=== PATIENT | male | born 1965 | race Caucasian/White ===

== ENCOUNTER 2018-02-16 13:21 | Observation (INO) ==
[2018-02-16 14:25] LABS: Basophils % 0.4 %; Eosinophils # 0.2 K/mcL (0.0-0.6); Hematocrit 36.1 % (37.5-50.1); Hemoglobin 13.3 g/dL (12.9-16.9); Immature Granulocytes % 1.9 % (0-4); Lymphocytes # 0.8 K/mcL (0.6-4.6); Lymphocytes % 15.5 %; Mean Corpuscular HGB Conc 36.8 g/dL (31.6-35.5); Mean Corpuscular Hemoglobin 34.3 pg (28.0-33.3); Monocytes # 0.6 K/mcL (0.0-1.3); Neutrophils # 3.6 K/mcL (1.6-8.9); Platelet Count 208 K/mcL (140-400); Red Blood Count 3.88 M/mcL (4.19-5.50); Red Cell Distribution Width 11.9 % (11.5-14.5); Segmented Neutrophils % 68.2 %
[2018-02-16 14:30] LABS: BUN/Creatinine Ratio 14 (6-26); Blood Urea Nitrogen 7 mg/dL (6-20); Calcium 8.5 mg/dL (8.6-10.3); Carbon Dioxide 28 mEq/L (23-29); Chloride 80 mEq/L (98-107); Glucose 198 mg/dL (70-105); Osmolality,Calculated 244 (280-300); Sodium 115 mEq/L (136-145); eGFR For Non-African Americans > 60 (> 60)
[2018-02-16] MEDS ORDERED: 0.9 % Sodium Chloride 1,000 ML IVC ONE (14:44)
--- NOTE | 2018-02-16 14:50 | Emergency Department Note ---
Disposition Clinical Impression: Hyponatremia Disposition: Admitted As Inpatient Condition: Fair Referrals: Alize Woo MD [Primary Care Provider] - Time of Disposition: 15:05 Recheck wound or abnormal lab - General Chief Complaint: ED Recheck/Abnormal Lab/Rx Stated Complaint: low sodium abnormal labs Time Seen by Provider: 02/16/18 13:42 Source: EMS Mode of arrival: EMS Limitations: no limitations Nursing Notes Reviewed: Yes Vital Signs Reviewed: Yes - History of Present Illness Pt Subjective Complaint: abnormal lab(s) Symptoms Since Prior Visit: no new symptoms Context: planned re-check, called for abnormal lab result, other (Patient has had 2 hospitalizations in the past couple months for hyponatremia. [place] week he [place] [facility] Today he went to physician office for follow-up and had recheck laboratory studies performed. He was then called because the sodium was low and he was told he needed to go to the emergency department. He denies any symptoms. He he says last time he felt weird but this time he feels his normal self and has been maintaining his normal activity level at home over the past few days.) Associated symptoms: none - Related Data Home Medications Medication Instructions Recorded Confirmed Albuterol Neb [Proventil Neb] 1 aerosol IH Q4H PRN 01/23/18 02/16/18 Albuterol Sulfate [Ventolin Hfa] 2 puff IH BID 01/23/18 02/16/18 Atorvastatin Calcium [Lipitor] 20 mg PO DAILY 01/23/18 02/16/18 Cholecalciferol (Vitamin D3) 2 cap PO DAILY 01/23/18 02/16/18 [Vitamin D3] Docusate Sodium [Move It Along] 100 mg PO BID PRN 01/23/18 02/16/18 Dutasteride [Avodart] 0.5 mg PO DAILY 01/23/18 02/16/18 Fluticasone Propionate Nasal 2 inh IN DAILY 01/23/18 02/16/18 [Flonase] Haloperidol 10 mg PO BID 01/23/18 02/16/18 Lisinopril [Zestril] 20 mg PO DAILY 01/23/18 02/16/18 Loratadine [Allergy Relief] 10 mg PO DAILY 01/23/18 02/16/18 Melatonin [Melatin] 3 mg PO HS PRN 01/23/18 02/16/18 Metoprolol Tartrate [Lopressor] 50 mg PO BID 01/23/18 02/16/18 Multivits,Ca,Min/Iron/FA/Lycop 1 tab PO DAILY 01/23/18 02/16/18 [Centrum Men's Tablet] OXcarbazepine [Oxcarbazepine] 300 mg PO TID 01/23/18 02/16/18 OXcarbazepine [Oxcarbazepine] 600 mg PO TID 01/23/18 02/16/18 Omeprazole [PriLOSEC] 20 mg PO DAILY 01/23/18 02/16/18 Promethazine [Phenergan] 25 mg PO Q6HR PRN 01/23/18 02/16/18 Sodium Chloride/Sodium Bicarb 1 spray IN BID 01/23/18 02/16/18 [Nasa Mist Saline [place]] Tamsulosin HCl [Flomax] 0.4 mg PO DAILY 01/23/18 02/16/18 Tramadol HCl [Ultram] 100 mg PO TID 01/23/18 02/16/18 Valacyclovir HCl [Valtrex] 1,000 mg PO Q12H PRN 01/23/18 02/16/18 amLODIPine [Norvasc] 10 mg PO DAILY 01/23/18 02/16/18 Haloperidol [Haldol] 5 mg PO BID 01/24/18 02/16/18 Montelukast [Singulair] 10 mg PO DAILY 01/24/18 02/16/18 Trihexyphenidyl [Artane] 1 mg PO BID 01/24/18 02/16/18 Previous Rx's Medication Instructions Recorded Sodium Chloride [Sodium Chloride 1 gm PO BID #60 tablet 01/26/18 Tab] Allergies Allergy/AdvReac Type Severity Reaction Status Date / Time No Known Allergies Allergy Verified 02/09/17 16:36 All systems ED: reviewed and negative except as stated. Constitutional: Denies: fever, chills Eyes: Denies: vision change ENT ED: Denies: ear pain, throat pain, congestion Cardiovascular: Denies: chest pain, palpitations Respiratory: Denies: cough, dyspnea Gastrointestinal: Denies: abdominal pain, nausea, vomiting, diarrhea Genitourinary: Denies: urgency, frequency Musculoskeletal: Denies: myalgia Integumentary: Denies: rash Neurological: Denies: headache, weakness, numbness, paresthesias, confusion, vertigo Past Medical History - Past Medical History Attestation: Yes The following information was validated with the patient. Source: patient, old records reviewed, obtained from family, nursing notes reviewed Medical history: Reports: hypertension, other Surgical history: Reports: orthopedic, other (spine surgery) Psychiatric history: Reports: anxiety, bipolar, schizophrenia - Social History Smoking Status: Current every day smoker Smokeless Tobacco Status: No Alcohol use: Reports: none Drug use: Reports: none Physical Exam - General Limitations: no limitations General appearance: alert, in no apparent distress - Head Head exam: atraumatic, normocephalic, normal inspection - Eye Eye exam: Present: normal appearance, PERRL, EOMI. Absent: scleral icterus, conjunctival injection, periorbital swelling - ENT ENT exam: normal exam, normal oropharynx, mucous membranes moist, normal external ear exam - Neck Neck exam: Present: normal inspection, full ROM. Absent: meningismus, lymphadenopathy - Chest Chest inspection: Present: normal inspection, symmetric chest wall rise. Absent : tenderness - Respiratory Respiratory exam: Present: normal lung sounds bilaterally. Absent: respiratory distress, wheezes - Cardiovascular Cardiovascular exam: Present: regular rate, normal rhythm, normal heart sounds - Abdominal Exam Abdominal exam: Present: soft, Non-Tender, normal bowel sounds - Extremities Exam Extremities exam: Present: normal inspection. Absent: pedal edema - Neurological Exam Neurological exam: Present: alert, oriented X3. Absent: motor sensory deficit - Psychiatric Psychiatric exam: Present: normal affect, normal mood - Skin Skin exam: Present: warm, dry. Absent: rash Course Course Narrative: Patient presents with low sodium by outpatient lab. He has chronic hyponatremia usually in the 125-129 range. Recently he has had a couple of hospitalizations for sodium was down around 115. Patient is not able to explain what the etiology is. He was admitted to [facility] at the end of January. 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 He was started on salt tablets and his numbers improved and was discharged. Since that discharge he was seen at [facility]. The patient does not describe any symptoms to indicate hyponatremia. Physical examination is unremarkable. Neurologic examination is unremarkable. Clinically he looks euvolemic. First in order to do is repeat the lab to determine if it is accurate, especially in the context of no symptoms. - Reevaluation(s) Reevaluation #1: Sodium level was definitely low. Repeat was 115. He is asymptomatic and this is been an ongoing issue for several weeks so I do not think there is a rushed to correct that sodium. I will start him on normal saline. I have already spoken with the hospitalist. The patient has been accepted for admission. Time: 15:03 - Consultations Consultation #1: Dr. Gage, hospitalist - we have discussed the patient's presentation and labs as well as ER course and treatment. Patient has been accepted for admission. Time: 14:45 Vital Signs Temperature 98.0 F 02/16/18 13:26 Pulse Rate 55 02/16/18 13:26 Respiratory Rate 18 02/16/18 13:26 Blood Pressure 136/75 02/16/18 13:26 O2 Sat by Pulse Oximetry 98 02/16/18 13:26 Temperature 98.0 F 02/16/18 13:26 Pulse Rate 55 02/16/18 13:26 Respiratory Rate 18 02/16/18 13:26 Blood Pressure 136/75 02/16/18 13:26 O2 Sat by Pulse Oximetry 98 02/16/18 13:26 Oxygen Delivery Oxygen Delivery Room Air Recheck wound or abnormal lab - Medical Records Medical records reviewed: Yes I reviewed the patient's medical records. - Lab Data Lab results reviewed: Yes I reviewed the patient's lab results. Result diagrams: 02/16/18 14:00 02/16/18 14:00 Lab Results 02/16/18 02/16/18 Range/Units 14:00 14:00 WBC 5.3 (4.3-11.1) K/mcL RBC 3.88 L (4.19-5.50) M/mcL Hgb 13.3 (12.9-16.9) g/dL Hct 36.1 L (37.5-50.1) % MCV 93.0 (83.0-100.0) fL MCH 34.3 H (28.0-33.3) pg MCHC 36.8 H (31.6-35.5) g/dL RDW 11.9 (11.5-14.5) % Plt Count 208 (140-400) K/mcL MPV 9.0 L (9.4-12.4) fL Immature Gran % 1.9 (0-4) % Seg Neutrophils % 68.2 % Lymphocytes % 15.5 % Monocytes % 11.0 % Eosinophils % 3.0 % Basophils % 0.4 % Neutrophils # 3.6 (1.6-8.9) K/mcL Lymphocytes # 0.8 (0.6-4.6) K/mcL Monocytes # 0.6 (0.0-1.3) K/mcL Eosinophils # 0.2 (0.0-0.6) K/mcL Basophils # 0.0 (0.0-0.2) K/mcL Sodium 115 L* (136-145) mEq/L Potassium 3.0 L D (3.5-5.1) mEq/L Chloride 80 L (98-107) mEq/L Carbon Dioxide 28 (23-29) mEq/L BUN 7 (6-20) mg/dL Creatinine 0.49 L (0.70-1.30) mg/dL Est GFR ( Amer) > 60 (> 60) Est GFR (Non-Af Amer) > 60 (> 60) BUN/Creatinine Ratio 14 (6-26) Glucose 198 H (70-105) mg/dL Calculated Osmolality 244 L (280-300) Calcium 8.5 L (8.6-10.3) mg/dL
[2018-02-16] MEDS ORDERED: 0.9 % Sodium Chloride 1,000 ML IVC SCH (15:50)
[2018-02-16] MEDS ORDERED: Naloxone 0.4 MG/ML INJ IVP PRN (15:50)
[2018-02-16] MEDS ORDERED: Albuterol 2.5 MG/3 ML NEBULIZER IH PRN (16:00)
--- NOTE | 2018-02-16 18:57 | Internal Med History&Physical ---
Date of Encounter: 02/16/18 Time of Encounter: 18:15 Assessment and Plan (1) Hyponatremia Current visit: Yes Status: Acute Suspect due to SIADH with possible superimposed water intoxication. He will be started on 2 L per day fluid restriction. Ibuprofen will be discontinued. I recommend he be transitioned from oxcarbazepine to other antipsychotic agents to avoid SIADH (2) Hypokalemia Current visit: Yes Status: Acute Suspect due to excessive water ingestion. Restrict fluids as per above and give supplemental potassium. Recheck labs in a.m. (3) Hypertension Current visit: Yes Status: Chronic Continue lisinopril Qualifiers: Hypertension type: essential hypertension Qualified Code(s): I10 - Essential (primary) hypertension (4) DM type 2 (diabetes mellitus, type 2) Current visit: Yes Status: Chronic Recheck hemoglobin A1c in a.m. to see if reported weight loss has improved control. Qualifiers: Diabetes mellitus intermediate insulin use: without termite exterminator use Diabetes mellitus complication status: without complication Qualified Code(s): E11.9 - Type 2 diabetes mellitus without complications (5) Tobacco abuse Current visit: Yes Status: Acute Check room air oximetry in a.m. on 6 minute walk. Internal Medicine - H&P: HPI Chief complaint: Hyponatremia, hypokalemia Admitted From: Emergency Dept Plans for Post Hospital Care: Home History of present illness: Mr. Kessler is a 53 year old male who was directed to come to emergency room after labs done at his PCP office returned showing severe hyponatremia with sodium 114. In emergency room labs were repeated and sodium was 115. Potassium level had decreased to 3.0. He was admitted to [facility] floor for ongoing care needs. He was unaware he has had 20 to anemia on all [ ~30] labs since January 2014. He was hospitalized at [facility] January 2018 with sodium 112. Nephrology felt he had SIADH and he was recommended to take sodium chloride tablets and 1.5 L per day fluid restriction. He reports he has taken the sodium chloride tablets but is still consuming up to 2 gallons of liquid per day. He states he uses ibuprofen 800 mg 3 times a day. He reports taking Trileptal for approximately 4 years. Past Med Surg Social Fam HX - Past Medical History Medical history: hypertension, other Additional medical history: diverticulitis Psychiatric history: anxiety, bipolar, schizophrenia - Past Surgical History Surgical History: orthopedic, other Additional surgical history: BACK SURGERY - Social History Smoking Status: Current every day smoker Packs per day: 1 Smokeless Tobacco Status: No Alcohol use: none Drug use: none - Family History Mother Hx Family Cardiac Disorders: No Hx Family Endocrine Disorder: Yes (diabetes) Internal Medicine - H&P: Meds Albuterol Neb [Proventil Neb] 1 aerosol IH Q4H PRN 01/23/18 [History] Albuterol Sulfate [Ventolin Hfa] 2 puff IH BID 01/23/18 [History] Atorvastatin Calcium [Lipitor] 20 mg PO DAILY 01/23/18 [History] Cholecalciferol (Vitamin D3) [Vitamin D3] 2 cap PO DAILY 01/23/18 [History] Docusate Sodium [Move It Along] 100 mg PO BID PRN 01/23/18 [History] Dutasteride [Avodart] 0.5 mg PO DAILY 01/23/18 [History] Fluticasone Propionate Nasal [Flonase] 2 inh IN DAILY 01/23/18 [History] Haloperidol 10 mg PO BID 01/23/18 [History] Lisinopril [Zestril] 20 mg PO DAILY 01/23/18 [History] Loratadine [Allergy Relief] 10 mg PO DAILY 01/23/18 [History] Melatonin [Melatin] 3 mg PO HS PRN 01/23/18 [History] Metoprolol Tartrate [Lopressor] 50 mg PO BID 01/23/18 [History] Multivits,Ca,Min/Iron/FA/Lycop [Centrum Men's Tablet] 1 tab PO DAILY 01/23/18 [ History] OXcarbazepine [Oxcarbazepine] 300 mg PO TID 01/23/18 [History] OXcarbazepine [Oxcarbazepine] 600 mg PO TID 01/23/18 [History] Omeprazole [PriLOSEC] 20 mg PO DAILY 01/23/18 [History] Promethazine [Phenergan] 25 mg PO Q6HR PRN 01/23/18 [History] Sodium Chloride/Sodium Bicarb [Nasa Mist Saline [place]] 1 spray IN BID 01/23/18 [ History] Tamsulosin HCl [Flomax] 0.4 mg PO DAILY 01/23/18 [History] Tramadol HCl [Ultram] 100 mg PO TID 01/23/18 [History] Valacyclovir HCl [Valtrex] 1,000 mg PO Q12H PRN 01/23/18 [History] amLODIPine [Norvasc] 10 mg PO DAILY 01/23/18 [History] Haloperidol [Haldol] 5 mg PO BID 01/24/18 [History] Montelukast [Singulair] 10 mg PO DAILY 01/24/18 [History] Trihexyphenidyl [Artane] 1 mg PO BID 01/24/18 [History] Sodium Chloride [Sodium Chloride Tab] 1 gm PO BID #60 tablet 01/26/18 [Rx] Atorvastatin [Lipitor] 20 mg PO HS 02/16/18 [History] Ibuprofen [Motrin] 800 mg PO BID 02/16/18 [History] 3 Allergy/AdvReac Type Severity Reaction Status Date / Time No Known Allergies Allergy Verified 02/09/17 16:36 All Systems PM: A 10-system review of systems was performed and is negative for pertinent findings except as documented above in the HPI. Review of systems: Gen.: He states his weight has decreased approximately 20 pounds in the past year, intentionally Cardiovascular: He has history of hypertension but denies MA heart failure angina DVT or pulmonary embolus Respiratory: He has smoked since age 16 up to 3 packs per day. He claims a diagnosis of COPD but does not use home oxygen. GI: Denies disorders of his liver gallbladder or exocrine pancreas : He denies hematuria dysuria kidney stones Neurologic: He denies large distribution strokes or seizures. Endocrine: He states he has been diagnosed with borderline diabetes. Hemoglobin A1c was 6.7% on 01/04/2015. He denies thyroid disease or hyperlipidemia. Hematology/oncology: He denies blood disorders cancers or anemia Psychiatric: He states he has been diagnosed with bipolar, schizoaffective disorder, schizophrenia, and "2 other problems". [place] skeletal: He has arthritis and reports 2 previous back surgeries. He denies gout. - Constitutional Vitals: Temp Pulse Resp BP Pulse Ox 98.0 F 55 18 131/77 98 02/16/18 13:26 02/16/18 15:44 02/16/18 15:44 02/16/18 15:44 02/16/18 17:25 Exam: Gen.: He is a well-developed well-nourished male lying in bed who appears in no acute distress at present time. HEENT: Head is atraumatic and normocephalic. Eyes: EOMI. There is no scleral icterus. Mouth: Mucosa is moist. Neck: Supple and nontender. There is no thyromegaly or adenopathy noted. Heart: Regular without murmurs gallops or ectopics Lungs: No wheezes or crackles are heard. Abdomen: Soft and nontender. No masses or guarding are noted. Extremities: There is no cyanosis edema or clubbing noted. Dorsalis pedis and posttibial pulses are trace to 1+ palpable bilaterally. Neurologic: Mental status: He is talkative and a good historian. Cranial nerves : Smile is symmetric. Forehead wrinkles bilaterally. Tongue protrudes midline. EOMI. Motor: There is no pronator drift. Cerebellar: Finger to nose is intact bilaterally. Skin: Warm and dry Internal Med - H&P Results - Labs CBC & Chem 7: 02/16/18 14:00 02/16/18 14:00
[2018-02-16] MEDS: 0.9 % Sodium Chloride w KCl 20 MEQ/1,000 ML MLS IVC SCH (19:30)
[2018-02-16] MEDS ORDERED: Melatonin 3 MG TABLET PO PRN (21:00)
[2018-02-16] MEDS ORDERED: HALOPERIDOL 10 MG PO SCH (21:00)
[2018-02-16] MEDS ORDERED: OXCARBAZEPINE 600 MG PO SCH (21:00)
[2018-02-16] MEDS: traMADol 50 MG TABLET PO SCH (21:09)
[2018-02-16] MEDS: OXcarbazepine 150 MG TABLET PO SCH (21:10)
[2018-02-17] MEDS: [UNRECOGNIZED DRUG - OTHER] NS SCH ×2 (01:25→12:34)
[2018-02-17] MEDS: 0.9 % Sodium Chloride w KCl 20 MEQ/1,000 ML MLS IVC SCH (07:15)
[2018-02-17] MEDS: OXcarbazepine 150 MG TABLET PO SCH (08:10)
[2018-02-17] MEDS: traMADol 50 MG TABLET PO SCH (08:10)
[2018-02-17] MEDS ORDERED: Cholecalciferol (D-3) 1,000 UNIT TABLET PO SCH (09:00)
[2018-02-17] MEDS ORDERED: Loratadine 10 MG TABLET PO SCH (09:00)
[2018-02-17] MEDS ORDERED: Multivit/Ca/Min/Fe/FA 1 TAB TABLET PO SCH (09:00)
[2018-02-17] MEDS ORDERED: amLODIPine 5 MG TABLET PO SCH (09:00)
[2018-02-17] MEDS ORDERED: Fluticasone Propionate Nasal 50 MCG/SPRAY BOTTLE NS SCH (09:00)
[2018-02-17] MEDS ORDERED: Finasteride 5 MG TABLET PO SCH (09:00)
[2018-02-17] MEDS ORDERED: Lisinopril 20 MG TABLET PO SCH (09:00)
[2018-02-17 12:11] VITALS: BP 118/70
[2018-02-17 12:38] LABS: BUN/Creatinine Ratio 13 (6-26); Blood Urea Nitrogen 7 mg/dL (6-20); Carbon Dioxide 28 mEq/L (23-29); Chloride 95 mEq/L (98-107); Glucose 75 mg/dL (70-105); Osmolality,Calculated 265 (280-300); Potassium 4.7 mEq/L (3.5-5.1); Sodium 129 mEq/L (136-145); eGFR For Non-African Americans > 60 (> 60)
[2018-02-17 12:39] LABS: Calcium 8.6 mg/dL (8.6-10.3)
[2018-02-17 12:40] LABS: Hematocrit 37.7 % (37.5-50.1); Hemoglobin 13.4 g/dL (12.9-16.9); Mean Corpuscular HGB Conc 35.5 g/dL (31.6-35.5); Mean Corpuscular Hemoglobin 33.9 pg (28.0-33.3); Mean Corpuscular Volume 95.4 fL (83.0-100.0); Mean Platelet Volume 9.1 fL (9.4-12.4); Platelet Count 217 K/mcL (140-400); Red Blood Count 3.95 M/mcL (4.19-5.50); Red Cell Distribution Width 12.4 % (11.5-14.5)
[2018-02-17 12:41] LABS: Basophils % 0.4 %; Eosinophils # 0.1 K/mcL (0.0-0.6); Eosinophils % 2.1 %; Immature Granulocytes % 1.8 % (0-4); Lymphocytes # 0.8 K/mcL (0.6-4.6); Lymphocytes % 14.3 %; Monocytes # 1.1 K/mcL (0.0-1.3); Monocytes % 19.7 %; Neutrophils # 3.5 K/mcL (1.6-8.9); Segmented Neutrophils % 61.7 %
--- NOTE | 2018-02-17 12:50 | Discharge Summary ---
Orders not resulted at time of discharge: Pending orders 02/16/18 18:13 Urinalysis Reflex Cult & Micro [URIN] Routine 02/17/18 04:00 B-Type Natriuretic Peptide AM 0400 Hgb A1C AM 0400 Date of Encounter: 02/17/18 Time of Encounter: 12:44 - Discharge Diagnosis (1) Hyponatremia Priority: Primary Status: Acute (2) Hypokalemia Priority: Secondary Status: Acute (3) Hypertension Priority: Secondary Status: Chronic Qualifiers: Hypertension type: essential hypertension Qualified Code(s): I10 - Essential (primary) hypertension (4) DM type 2 (diabetes mellitus, type 2) Priority: Secondary Status: Chronic Qualifiers: Diabetes mellitus termite control technician insulin use: without skilled nursing use Diabetes mellitus complication status: without complication Qualified Code(s): E11.9 - Type 2 diabetes mellitus without complications (5) Tobacco abuse Priority: Secondary Status: Acute Hospital course: Mr. Kessler is a 53 year old male who was directed to come to emergency room after labs done at his PCP office returned showing severe hyponatremia with sodium 114. In emergency room labs were repeated and sodium was 115. Potassium level had decreased to 3.0. He was admitted to [facility] floor for ongoing care needs. He was unaware he has had hyponatremia on all [ ~30] labs since January 2014. He was hospitalized at [facility] January 2018 with sodium 112. Nephrology felt he had SIADH and he was recommended to take sodium chloride tablets and 1.5 L per day fluid restriction. He reports he has taken the sodium chloride tablets but is still consuming up to 2 gallons of liquid per day. He states he uses ibuprofen 800 mg 3 times a day. He reports taking Trileptal for approximately 4 years. Initial orders were written by the emergency room physician. I saw him on February 16 and performed a history and physical. He was given IV fluids with supplemental potassium. Sodium eze to 129 by the following day. Potassium normalized to 4.7. I told him he should discontinue ibuprofen. I recommend he be transitioned from oxcarbazepine to another antipsychotic medication to avoid SIADH. I also encouraged him to drink no more than 2 L fluid per day. He felt stable for discharge home on February 17. He will follow with his PCP Dr. Woo within 1 week. - Time Spent with Patient Total time spent providing and/or coordinating discharge services: - Discharge Medications Home Medications: Albuterol Neb [Proventil Neb] 1 aerosol IH Q4H PRN 01/23/18 [History] Albuterol Sulfate [Ventolin Hfa] 2 puff IH BID 01/23/18 [History] Atorvastatin Calcium [Lipitor] 20 mg PO DAILY 01/23/18 [History] Cholecalciferol (Vitamin D3) [Vitamin D3] 2 cap PO DAILY 01/23/18 [History] Docusate Sodium [Move It Along] 100 mg PO BID PRN 01/23/18 [History] Dutasteride [Avodart] 0.5 mg PO DAILY 01/23/18 [History] Fluticasone Propionate Nasal [Flonase] 2 inh IN DAILY 01/23/18 [History] Haloperidol 10 mg PO BID 01/23/18 [History] Lisinopril [Zestril] 20 mg PO DAILY 01/23/18 [History] Loratadine [Allergy Relief] 10 mg PO DAILY 01/23/18 [History] Melatonin [Melatin] 3 mg PO HS PRN 01/23/18 [History] Metoprolol Tartrate [Lopressor] 50 mg PO BID 01/23/18 [History] Multivits,Ca,Min/Iron/FA/Lycop [Centrum Men's Tablet] 1 tab PO DAILY 01/23/18 [History] OXcarbazepine [Oxcarbazepine] 300 mg PO TID 01/23/18 [History] OXcarbazepine [Oxcarbazepine] 600 mg PO TID 01/23/18 [History] Omeprazole [PriLOSEC] 20 mg PO DAILY 01/23/18 [History] Promethazine [Phenergan] 25 mg PO Q6HR PRN 01/23/18 [History] Sodium Chloride/Sodium Bicarb [Nasa Mist Saline [place]] 1 spray IN BID 01/23/18 [History] Tamsulosin HCl [Flomax] 0.4 mg PO DAILY 01/23/18 [History] Tramadol HCl [Ultram] 100 mg PO TID 01/23/18 [History] Valacyclovir HCl [Valtrex] 1,000 mg PO Q12H PRN 01/23/18 [History] amLODIPine [Norvasc] 10 mg PO DAILY 01/23/18 [History] Haloperidol [Haldol] 5 mg PO BID 01/24/18 [History] Montelukast [Singulair] 10 mg PO DAILY 01/24/18 [History] Trihexyphenidyl [Artane] 1 mg PO BID 01/24/18 [History] Sodium Chloride [Sodium Chloride Tab] 1 gm PO BID #60 tablet 01/26/18 [Rx] Atorvastatin [Lipitor] 20 mg PO HS 02/16/18 [History] Allergies/Adverse Reactions: Allergy/AdvReac Type Severity Reaction Status Date / Time No Known Allergies Allergy Verified 02/09/17 16:36 Date of admission: 02/16/18 15:19 Primary care physician: Alize Woo - Constitutional Vitals: Temp Pulse Resp BP Pulse Ox 98.8 F 53 16 118/70 94 02/17/18 10:19 02/17/18 10:19 02/17/18 10:19 02/17/18 10:19 02/17/18 12:38 - Patient Status Disposition: Home, Self-Care Condition: Fair - Discharge Instructions Follow Up With: Alize Woo MD [Primary Care Provider] - 1 week - Diet and Activity Activity: resume usual activities as tolerated Diet: advance to your usual diet
[2018-02-17] MEDS ORDERED: Lisinopril 20 MG TABLET PO ONE (14:04)
[2018-02-17] MEDS ORDERED: OXcarbazepine 150 MG TABLET PO ONE (14:04)
[2018-02-17] MEDS ORDERED: Cholecalciferol (D-3) 1,000 UNIT TABLET PO ONE (14:04)
[2018-02-17] MEDS ORDERED: 0.9 % Sodium Chloride w KCl 20 MEQ/1,000 ML MLS IVC ONE (14:04)
[2018-02-17] MEDS ORDERED: Finasteride 5 MG TABLET PO ONE (14:04)
[2018-02-17] MEDS ORDERED: Multivit/Ca/Min/Fe/FA 1 TAB TABLET PO ONE (14:04)
[2018-02-17] MEDS ORDERED: traMADol 50 MG TABLET PO ONE (14:04)
[2018-02-17] MEDS ORDERED: amLODIPine 5 MG TABLET PO ONE (14:04)
[2018-02-17 14:29] LABS: Estimated Average Glucose 128 mg/dl; Hemoglobin A1C 6.1 %
== END 2018-02-17 14:05 | disposition home or self-care (01) ==
LOC: EMEROOPIK 13:21 → INPPIK 13:21
PROVIDERS: ADMIT Internal Medicine; ATTEND Internal Medicine

== ENCOUNTER 2018-02-22 16:41 | Inpatient (IN) ==
[2018-02-22] MEDS ORDERED: 0.9 % Sodium Chloride 1,000 ML IVC ONE (16:53)
[2018-02-22 17:05] LABS: Basophils % 0.4 %; Eosinophils # 0.2 K/mcL (0.0-0.6); Eosinophils % 3.9 %; Hematocrit 33.8 % (37.5-50.1); Hemoglobin 12.6 g/dL (12.9-16.9); Immature Granulocytes % 0.6 % (0-4); Lymphocytes % 18.8 %; Mean Corpuscular Hemoglobin 34.4 pg (28.0-33.3); Mean Corpuscular Volume 92.3 fL (83.0-100.0); Mean Platelet Volume 8.9 fL (9.4-12.4); Monocytes % 20.2 %; Neutrophils # 2.9 K/mcL (1.6-8.9); Platelet Count 163 K/mcL (140-400); Red Blood Count 3.66 M/mcL (4.19-5.50); Red Cell Distribution Width 11.9 % (11.5-14.5); Segmented Neutrophils % 56.1 %
[2018-02-22 17:11] LABS: Mean Corpuscular HGB Conc 37.3 g/dL (31.6-35.5)
[2018-02-22 17:20] LABS: Bilirubin,Urine Negative (Negative); Blood,Urine Trace-lysed (Negative); Clarity,Urine Clear (Clear); Color,Urine Yellow (Yellow); Glucose,Urine (UA) Normal (Normal); Ketones,Urine Negative (Negative); Leukocyte Esterase,Urine Negative (Negative); Nitrite,Urine Negative (Negative); Protein,Urine Trace mg/dL (Neg-Trace); Urobilinogen,Urine Normal (Normal)
[2018-02-22 17:25] LABS: BUN/Creatinine Ratio 16 (6-26); Blood Urea Nitrogen 7 mg/dL (6-20); Calcium 8.5 mg/dL (8.6-10.3); Carbon Dioxide 29 mEq/L (23-29); Chloride 83 mEq/L (98-107); Glucose 92 mg/dL (70-105); Osmolality,Calculated 240 (280-300); Potassium 3.7 mEq/L (3.5-5.1); Sodium 116 mEq/L (136-145); eGFR For Non-African Americans > 60 (> 60)
[2018-02-22 17:32] LABS: Squamous Epithelial Cell,Urine Few per lpf (None-Few); WBC,Urine 0-3 per hpf (0-3)
[2018-02-22 17:52] LABS: Platelet Estimate Normal (Normal)
--- NOTE | 2018-02-22 18:51 | Emergency Department Note ---
Disposition Clinical Impression: Hyponatremia Disposition: Admitted As Inpatient Condition: Fair Referrals: NONE,PCP [Primary Care Provider] - Time of Disposition: 18:52 Recheck wound or abnormal lab - General Chief Complaint: ED Recheck/Abnormal Lab/Rx Stated Complaint: low sodium level Time Seen by Provider: 02/22/18 17:21 Source: patient Mode of arrival: private vehicle Limitations: no limitations Nursing Notes Reviewed: Yes Vital Signs Reviewed: Yes - History of Present Illness HPI Narrative: Patient presents with lab value of low sodium. He was admitted as hospital a few days ago for severe hyponatremia and that was corrected and he went to get f ollow-up labs today. Those labs showed significant low sodium again. He was sent here by his doctor. The patient denies any symptoms except feeling tired. Pt Subjective Complaint: abnormal lab(s) (Low sodium) Symptoms Since Prior Visit: no new symptoms Context: called for abnormal lab result Associated symptoms: none - Related Data Home Medications Medication Instructions Recorded Confirmed Albuterol Neb [Proventil Neb] 1 aerosol IH Q4H PRN 01/23/18 02/22/18 Albuterol Sulfate [Ventolin Hfa] 2 puff IH BID 01/23/18 02/22/18 Atorvastatin Calcium [Lipitor] 20 mg PO DAILY 01/23/18 02/22/18 Cholecalciferol (Vitamin D3) 2 cap PO DAILY 01/23/18 02/22/18 [Vitamin D3] Docusate Sodium [Move It Along] 100 mg PO BID PRN 01/23/18 02/22/18 Dutasteride [Avodart] 0.5 mg PO DAILY 01/23/18 02/22/18 Fluticasone Propionate Nasal 2 inh IN DAILY 01/23/18 02/22/18 [Flonase] Haloperidol 10 mg PO BID 01/23/18 02/22/18 Lisinopril [Zestril] 20 mg PO DAILY 01/23/18 02/22/18 Loratadine [Allergy Relief] 10 mg PO DAILY 01/23/18 02/22/18 Melatonin [Melatin] 3 mg PO HS PRN 01/23/18 02/22/18 Metoprolol Tartrate [Lopressor] 50 mg PO BID 01/23/18 02/22/18 Multivits,Ca,Min/Iron/FA/Lycop 1 tab PO DAILY 01/23/18 02/22/18 [Centrum Men's Tablet] OXcarbazepine [Oxcarbazepine] 300 mg PO TID 01/23/18 02/22/18 OXcarbazepine [Oxcarbazepine] 600 mg PO TID 01/23/18 02/22/18 Omeprazole [PriLOSEC] 20 mg PO DAILY 01/23/18 02/22/18 Promethazine [Phenergan] 25 mg PO Q6HR PRN 01/23/18 02/22/18 Sodium Chloride/Sodium Bicarb 1 spray IN BID 01/23/18 02/22/18 [Nasa Mist Saline [place]] Tamsulosin HCl [Flomax] 0.4 mg PO DAILY 01/23/18 02/22/18 Tramadol HCl [Ultram] 100 mg PO TID 01/23/18 02/22/18 Valacyclovir HCl [Valtrex] 1,000 mg PO Q12H PRN 01/23/18 02/22/18 amLODIPine [Norvasc] 10 mg PO DAILY 01/23/18 02/22/18 Haloperidol [Haldol] 5 mg PO BID 01/24/18 02/22/18 Montelukast [Singulair] 10 mg PO DAILY 01/24/18 02/22/18 Trihexyphenidyl [Artane] 1 mg PO BID 01/24/18 02/22/18 Atorvastatin [Lipitor] 20 mg PO HS 02/16/18 02/22/18 Previous Rx's Medication Instructions Recorded Sodium Chloride [Sodium Chloride 1 gm PO BID #60 tablet 01/26/18 Tab] Allergies Allergy/AdvReac Type Severity Reaction Status Date / Time No Known Allergies Allergy Verified 02/09/17 16:36 All systems ED: reviewed and negative except as stated. Constitutional: Denies: fever ENT ED: Denies: ear pain, throat pain, congestion Cardiovascular: Denies: chest pain, palpitations Respiratory: Denies: cough, dyspnea Gastrointestinal: Denies: abdominal pain, nausea, vomiting Neurological: Denies: headache Past Medical History - Past Medical History Attestation: Yes The following information was validated with the patient. Source: patient, old records reviewed, nursing notes reviewed Medical history: Reports: hypertension, other Surgical history: Reports: orthopedic, other Psychiatric history: Reports: anxiety, bipolar, schizophrenia - Social History Smoking Status: Current every day smoker Smokeless Tobacco Status: No Alcohol use: Reports: none Drug use: Reports: none Physical Exam - General Limitations: no limitations General appearance: alert, in no apparent distress - Head Head exam: atraumatic, normocephalic, normal inspection - Eye Eye exam: Present: normal appearance, PERRL, EOMI. Absent: scleral icterus, conjunctival injection - ENT ENT exam: normal exam, normal oropharynx, mucous membranes moist, normal external ear exam - Neck Neck exam: Present: normal inspection, full ROM - Chest Chest inspection: Present: normal inspection, symmetric chest wall rise. Absent: tenderness - Respiratory Respiratory exam: Present: normal lung sounds bilaterally. Absent: respiratory distress, wheezes - Cardiovascular Cardiovascular exam: Present: regular rate, normal rhythm, normal heart sounds - Abdominal Exam Abdominal exam: Present: soft, Non-Tender, normal bowel sounds - Extremities Exam Extremities exam: Present: normal inspection. Absent: pedal edema - Neurological Exam Neurological exam: Present: alert, oriented X3. Absent: motor sensory deficit - Psychiatric Psychiatric exam: Present: normal affect, normal mood - Skin Skin exam: Present: warm, dry Course Course Narrative: Patient was sent in for hyponatremia. He is asymptomatic. We will need to recheck the labs to make sure they are actually abnormal. I will start him on some normal saline at this time. - Reevaluation(s) Reevaluation #1: Sodium 116. Reportedly patient is asymptomatic. He needs to be admitted to have that corrected. I spoke with Dr. Gage, the hospitalist and he is accepted patient for admission. Time: 18:52 - Consultations Consultation #1: Dr. Gage, hospitalist - I discussed the case with the hospitalist. He has accepted the patient for admission. Time: 18:40 Vital Signs Temperature 98.0 F 02/22/18 16:43 Pulse Rate 50 02/22/18 16:43 Respiratory Rate 18 02/22/18 16:43 Blood Pressure 124/75 02/22/18 16:43 O2 Sat by Pulse Oximetry 98 02/22/18 16:43 Temperature 98.0 F 02/22/18 16:43 Pulse Rate 50 02/22/18 18:04 Respiratory Rate 18 02/22/18 18:04 Blood Pressure 114/73 02/22/18 17:42 O2 Sat by Pulse Oximetry 96 02/22/18 17:42 Oxygen Delivery Oxygen Delivery Room Air Recheck wound or abnormal lab - Medical Records Medical records reviewed: Yes I reviewed the patient's medical records. - Lab Data Lab results reviewed: Yes I reviewed the patient's lab results. Result diagrams: 02/22/18 16:58 02/22/18 16:58 Lab Results 02/22/18 02/22/18 02/22/18 Range/Units 16:58 16:58 17:10 WBC 5.1 (4.3-11.1) K/mcL RBC 3.66 L (4.19-5.50) M/mcL Hgb 12.6 L (12.9-16.9) g/dL Hct 33.8 L (37.5-50.1) % MCV 92.3 (83.0-100.0) fL MCH 34.4 H (28.0-33.3) pg MCHC 37.3 H (31.6-35.5) g/dL RDW 11.9 (11.5-14.5) % Plt Count 163 (140-400) K/mcL MPV 8.9 L (9.4-12.4) fL Immature Gran % 0.6 (0-4) % Seg Neutrophils % 56.1 % Lymphocytes % 18.8 % Monocytes % 20.2 % Eosinophils % 3.9 % Basophils % 0.4 % Neutrophils # 2.9 (1.6-8.9) K/mcL Lymphocytes # 1.0 (0.6-4.6) K/mcL Monocytes # 1.0 (0.0-1.3) K/mcL Eosinophils # 0.2 (0.0-0.6) K/mcL Basophils # 0.0 (0.0-0.2) K/mcL Platelet Estimate Normal (Normal) Sodium 116 L* (136-145) mEq/L Potassium 3.7 (3.5-5.1) mEq/L Chloride 83 L (98-107) mEq/L Carbon Dioxide 29 (23-29) mEq/L BUN 7 (6-20) mg/dL Creatinine 0.45 L (0.70-1.30) mg/dL Est GFR ( Amer) > 60 (> 60) Est GFR (Non-Af Amer) > 60 (> 60) BUN/Creatinine Ratio 16 (6-26) Glucose 92 (70-105) mg/dL Calculated Osmolality 240 L (280-300) Calcium 8.5 L (8.6-10.3) mg/dL Urine Color Yellow (Yellow) Urine Clarity Clear (Clear) Urine pH 7.0 (5.0-8.0) pH Units Ur Specific [place] 1.010 (1.010-1.025) Urine Protein Trace (Neg-Trace) mg/dL Urine Glucose (UA) Normal (Normal) mg/dL Urine Ketones Negative (Negative) mg/dL Urine Blood Trace-lysed H (Negative) Urine Nitrite Negative (Negative) Urine Bilirubin Negative (Negative) Urine Urobilinogen Normal (Normal) mg/dL Ur Leukocyte Esterase Negative (Negative) Urine Microscopic RBC 3-5 H (0-3) per hpf Urine Microscopic WBC 0-3 (0-3) per hpf Ur Squamous Epith Cells Few (None-Few) per lpf Ur Culture Indicated? NO (NO)
[2018-02-22] MEDS ORDERED: Melatonin 3 MG TABLET PO PRN (19:42)
[2018-02-22] MEDS ORDERED: Albuterol 2.5 MG/3 ML NEBULIZER IH PRN (19:42)
[2018-02-22] MEDS ORDERED: Naloxone 0.4 MG/ML INJ IVP PRN (19:42)
[2018-02-22] MEDS ORDERED: HALOPERIDOL 10 MG PO SCH (21:00)
[2018-02-22] MEDS ORDERED: OXCARBAZEPINE 300 MG PO SCH (21:00)
[2018-02-22] MEDS: 0.9 % Sodium Chloride 1,000 ML IVC SCH (21:11)
[2018-02-22] MEDS: OXcarbazepine 150 MG TABLET PO SCH (21:12)
[2018-02-22] MEDS: traMADol 50 MG TABLET PO SCH (21:12)
[2018-02-22] MEDS: Saline Nasal Spray 44 ML BOTTLE NS SCH (21:13)
[2018-02-23] MEDS: 0.9 % Sodium Chloride 1,000 ML IVC SCH (05:27)
[2018-02-23] MEDS: OXcarbazepine 150 MG TABLET PO SCH ×2 (07:24→17:36)
[2018-02-23] MEDS: traMADol 50 MG TABLET PO SCH ×3 (07:25→20:32)
[2018-02-23] MEDS: Cholecalciferol (D-3) 1,000 UNIT TABLET PO SCH (07:25)
[2018-02-23] MEDS: Multivit/Ca/Min/Fe/FA 1 TAB TABLET PO SCH (07:26)
[2018-02-23] MEDS: Loratadine 10 MG TABLET PO SCH (07:26)
[2018-02-23] MEDS: amLODIPine 5 MG TABLET PO SCH (07:26)
[2018-02-23] MEDS: Finasteride 5 MG TABLET PO SCH (07:26)
[2018-02-23] MEDS: Saline Nasal Spray 44 ML BOTTLE NS SCH ×2 (07:33→20:32)
[2018-02-23] MEDS ORDERED: Lisinopril 20 MG TABLET PO SCH (09:00)
[2018-02-23] MEDS ORDERED: NON-FORMULARY MEDICATION 1 EACH EACH (Atorvastatin Calcium [Lipitor] 20 MG) PO SCH (09:00)
--- NOTE | 2018-02-23 11:51 | Internal Med History&Physical ---
Date of Encounter: 02/23/18 Time of Encounter: 11:10 Assessment and Plan (1) Hyponatremia Current visit: Yes Status: Acute Likely SIADH. Discontinue lisinopril and taper Trileptal. Recheck labs in a.m. (2) Hypertension Current visit: No Status: Chronic Discontinue lisinopril. Continue amlodipine and Lopressor Qualifiers: Hypertension type: essential hypertension Qualified Code(s): I10 - Essential (primary) hypertension (3) DM type 2 (diabetes mellitus, type 2) Current visit: No Status: Chronic Diet controlled. Qualifiers: Diabetes mellitus intermediate insulin use: without long term care pharmacist use Diabetes mellitus complication status: without complication Qualified Code(s): E11.9 - Type 2 diabetes mellitus without complications (4) Anemia Current visit: Yes Status: Acute Hemoglobin has decreased to 12.6 on labs in ER yesterday. Recheck in a.m. Qualifiers: Anemia type: unspecified type Qualified Code(s): D64.9 - Anemia, unspecified Internal Medicine - H&P: HPI Chief complaint: Hyponatremia Admitted From: Emergency Dept Plans for Post Hospital Care: Home History of present illness: Mr. Kessler is a 53 year old male who was directed to come to emergency room after labs done earlier today showed significant hyponatremia with sodium 117. In emergency room labs repeated and sodium was 116. He was admitted to [facility] floor for ongoing care needs. He was hospitalized at [facility] 1 week ago for hyponatremia. He was hospitalized at [facility] January 2018 for hyponatremia. Workup has shown likely SIADH with possible excessive fluid intake. At discharge last week he was instructed to decrease fluid intake to maximum 2 L per day. He states he has occasionally slightly exceeded this but does not consume 4 L per day. Ibuprofen was discontinued. He reports compliance using the prescribed sodium chloride tablets. Trileptal dose has not been tapered. Past Med Surg Social Fam HX - Past Medical History Medical history: hypertension, other Additional medical history: diverticulitis Psychiatric history: anxiety, bipolar, schizophrenia - Past Surgical History Surgical History: orthopedic, other Additional surgical history: BACK SURGERY - Social History Smoking Status: Current every day smoker Packs per day: 2 Smokeless Tobacco Status: No Alcohol use: none Drug use: none - Family History Mother Hx Family Cardiac Disorders: No Hx Family Endocrine Disorder: Yes (diabetes) Internal Medicine - H&P: Meds Albuterol Neb [Proventil Neb] 1 aerosol IH Q4H PRN 01/23/18 [History] Albuterol Sulfate [Ventolin Hfa] 2 puff IH BID 01/23/18 [History] Atorvastatin Calcium [Lipitor] 20 mg PO DAILY 01/23/18 [History] Cholecalciferol (Vitamin D3) [Vitamin D3] 2 cap PO DAILY 01/23/18 [History] Docusate Sodium [Move It Along] 100 mg PO BID PRN 01/23/18 [History] Dutasteride [Avodart] 0.5 mg PO DAILY 01/23/18 [History] Fluticasone Propionate Nasal [Flonase] 2 inh IN DAILY 01/23/18 [History] Haloperidol 10 mg PO BID 01/23/18 [History] Lisinopril [Zestril] 20 mg PO DAILY 01/23/18 [History] Loratadine [Allergy Relief] 10 mg PO DAILY 01/23/18 [History] Melatonin [Melatin] 3 mg PO HS PRN 01/23/18 [History] Metoprolol Tartrate [Lopressor] 50 mg PO BID 01/23/18 [History] Multivits,Ca,Min/Iron/FA/Lycop [Centrum Men's Tablet] 1 tab PO DAILY 01/23/18 [History] OXcarbazepine [Oxcarbazepine] 300 mg PO TID 01/23/18 [History] OXcarbazepine [Oxcarbazepine] 600 mg PO TID 01/23/18 [History] Omeprazole [PriLOSEC] 20 mg PO DAILY 01/23/18 [History] Promethazine [Phenergan] 25 mg PO Q6HR PRN 01/23/18 [History] Sodium Chloride/Sodium Bicarb [Nasa Mist Saline [place]] 1 spray IN BID 01/23/18 [History] Tamsulosin HCl [Flomax] 0.4 mg PO DAILY 01/23/18 [History] Tramadol HCl [Ultram] 100 mg PO TID 01/23/18 [History] Valacyclovir HCl [Valtrex] 1,000 mg PO Q12H PRN 01/23/18 [History] amLODIPine [Norvasc] 10 mg PO DAILY 01/23/18 [History] Haloperidol [Haldol] 5 mg PO BID 01/24/18 [History] Montelukast [Singulair] 10 mg PO DAILY 01/24/18 [History] Trihexyphenidyl [Artane] 1 mg PO BID 01/24/18 [History] Sodium Chloride [Sodium Chloride Tab] 1 gm PO BID #60 tablet 01/26/18 [Rx] Atorvastatin [Lipitor] 20 mg PO HS 02/16/18 [History] Allergy/AdvReac Type Severity Reaction Status Date / Time No Known Allergies Allergy Verified 02/09/17 16:36 All Systems PM: A 10-system review of systems was performed and is negative for pertinent fi ndings except as documented above in the HPI. Review of systems: Review of systems from his [facility] visit 1 week ago were reviewed and revised as below. Gen.: He states his weight has decreased approximately 20 pounds in the past year, intentionally Cardiovascular: He has history of hypertension but denies [place] heart failure angina DVT or pulmonary embolus Respiratory: He has smoked since age 16 up to 3 packs per day. He claims a diagnosis of COPD but does not use home oxygen. GI: Denies disorders of his liver gallbladder or exocrine pancreas : He denies hematuria dysuria kidney stones Neurologic: He denies large distribution strokes or seizures. Endocrine: He states he has been diagnosed with borderline diabetes. Hemoglobin A1c was 6.1% on 02/17/2018. He denies thyroid disease or hyperlipidemia. Hematology/oncology: He denies blood disorders cancers or anemia Psychiatric: He states he has been diagnosed with bipolar, schizoaffective disorder, schizophrenia, and "2 other problems". He states he follows at [facility] with a psychiatrist. [place] skeletal: He has arthritis and reports previous disc surgery with hardware placement. He denies gout. - Constitutional Vitals: Temp Pulse Resp BP Pulse Ox 98.9 F 56 16 149/87 95 02/23/18 06:50 02/23/18 06:50 02/23/18 06:50 02/23/18 06:50 02/23/18 06:50 Exam: Gen.: He is a well-developed well-nourished male sitting on the side of bed who appears in no acute distress at present time HEENT: Head is atraumatic and normocephalic. Eyes: EOMI. There is no scleral icterus. Mouth: Mucosa is moist. Neck: Supple and nontender. There is no thyromegaly or adenopathy noted. Heart: Regular without murmurs gallops or ectopics Lungs: No wheezes or crackles are heard. Abdomen: Soft and nontender. No masses or guarding are noted. Exam is limited because he is in a seated position. Extremities: There is no cyanosis edema or clubbing noted. Dorsalis pedis and posttibial pulses are trace to 1+ palpable bilaterally. Neurologic: Mental status: He is talkative and a good historian. Cranial nerves: Smile is symmetric. Forehead wrinkles bilaterally. Tongue protrudes midline. EOMI. Motor: There is no pronator drift. Cerebellar: Finger to nose is intact bilaterally. Skin: Warm and dry Internal Med - H&P Results - Labs CBC & Chem 7: 02/22/18 16:58 02/22/18 16:58 Labs: Short CBC 02/22/18 Range/Units 16:58 WBC 5.1 (4.3-11.1) K/mcL Hgb 12.6 L (12.9-16.9) g/dL Hct 33.8 L (37.5-50.1) % Plt Count 163 (140-400) K/mcL Neutrophils # 2.9 (1.6-8.9) K/mcL BMP 02/22/18 16:58 Sodium 116 L* Potassium 3.7 Chloride 83 L Carbon Dioxide 29 BUN 7 Creatinine 0.45 L Glucose 92 Calcium 8.5 L Urine 02/22/18 Range/Units 17:10 Urine Color Yellow (Yellow) Urine Clarity Clear (Clear) Urine pH 7.0 (5.0-8.0) pH Units Ur Specific [place] 1.010 (1.010-1.025) Urine Protein Trace (Neg-Trace) mg/dL Urine Glucose (UA) Normal (Normal) mg/dL
[2018-02-23] MEDS ORDERED: OXcarbazepine 150 MG TABLET PO SCH (21:00)
[2018-02-24 06:51] VITALS: BP 161/91
[2018-02-24 07:15] LABS: BUN/Creatinine Ratio 8 (6-26); Blood Urea Nitrogen 4 mg/dL (6-20); Calcium 9.2 mg/dL (8.6-10.3); Carbon Dioxide 30 mEq/L (23-29); Chloride 94 mEq/L (98-107); Glucose 100 mg/dL (70-105); Osmolality,Calculated 269 (280-300); Potassium 3.8 mEq/L (3.5-5.1); Sodium 131 mEq/L (136-145); eGFR For Non-African Americans > 60 (> 60)
[2018-02-24] MEDS: OXcarbazepine 150 MG TABLET PO SCH (07:42)
[2018-02-24] MEDS: Cholecalciferol (D-3) 1,000 UNIT TABLET PO SCH (07:42)
[2018-02-24] MEDS: Multivit/Ca/Min/Fe/FA 1 TAB TABLET PO SCH (07:42)
[2018-02-24] MEDS: amLODIPine 5 MG TABLET PO SCH (07:42)
[2018-02-24] MEDS: traMADol 50 MG TABLET PO SCH (07:43)
[2018-02-24] MEDS: Loratadine 10 MG TABLET PO SCH (07:43)
[2018-02-24] MEDS: Finasteride 5 MG TABLET PO SCH (07:43)
[2018-02-24] MEDS: Saline Nasal Spray 44 ML BOTTLE NS SCH (07:47)
--- NOTE | 2018-02-24 10:52 | Discharge Summary ---
Date of Encounter: 02/24/18 Time of Encounter: 09:50 - Discharge Diagnosis (1) Hyponatremia Priority: Primary Status: Acute (2) Hypertension Priority: Secondary Status: Chronic Qualifiers: Hypertension type: essential hypertension Qualified Code(s): I10 - Essential (primary) hypertension (3) DM type 2 (diabetes mellitus, type 2) Priority: Secondary Status: Chronic Qualifiers: Diabetes mellitus residential insulin use: without residential use Diabetes mellitus complication status: without complication Qualified Code(s): E11.9 - Type 2 diabetes mellitus without complications (4) Anemia Priority: Secondary Status: Acute Qualifiers: Anemia type: unspecified type Qualified Code(s): D64.9 - Anemia, unspecified Hospital course: Mr. Kessler is a 53 year old male who was directed to come to emergency room after labs done earlier today showed significant hyponatremia with sodium 117. In emergency room labs repeated and sodium was 116. He was admitted to [facility] floor for ongoing care needs. Initial orders were written by the emergency room physician. I saw him on February 23 and performed a history and physical. He was started on normal saline IV fluids. Lisinopril was discontinued and Trileptal was tapered to lessen drug-induced SIADH. Follow-up labs on February 24 showed sodium 131. The patient remained asymptomatic throughout his hospital stay. He felt stable for discharge home on February 24. He will remain off lisinopril and Trileptal dose will be reduced at discharge. I recommend Trileptal continue to be tapered and discontinued if follow-up labs show persistent hyponatremia. He will follow with his PCP Dr. Woo within 1 week. - Time Spent with Patient Total time spent providing and/or coordinating discharge services: - Discharge Medications Home Medications: Albuterol Neb [Proventil Neb] 1 aerosol IH Q4H PRN 01/23/18 [History] Albuterol Sulfate [Ventolin Hfa] 2 puff IH BID 01/23/18 [History] Atorvastatin Calcium [Lipitor] 20 mg PO DAILY 01/23/18 [History] Cholecalciferol (Vitamin D3) [Vitamin D3] 2 cap PO DAILY 01/23/18 [History] Docusate Sodium [Move It Along] 100 mg PO BID PRN 01/23/18 [History] Dutasteride [Avodart] 0.5 mg PO DAILY 01/23/18 [History] Fluticasone Propionate Nasal [Flonase] 2 inh IN DAILY 01/23/18 [History] Haloperidol 10 mg PO BID 01/23/18 [History] Loratadine [Allergy Relief] 10 mg PO DAILY 01/23/18 [History] Melatonin [Melatin] 3 mg PO HS PRN 01/23/18 [History] Metoprolol Tartrate [Lopressor] 50 mg PO BID 01/23/18 [History] Multivits,Ca,Min/Iron/FA/Lycop [Centrum Men's Tablet] 1 tab PO DAILY 01/23/18 [History] OXcarbazepine [Oxcarbazepine] 600 mg PO TID 01/23/18 [History] Omeprazole [PriLOSEC] 20 mg PO DAILY 01/23/18 [History] Promethazine [Phenergan] 25 mg PO Q6HR PRN 01/23/18 [History] Sodium Chloride/Sodium Bicarb [Nasa Mist Saline [place]] 1 spray IN BID 01/23/18 [History] Tamsulosin HCl [Flomax] 0.4 mg PO DAILY 01/23/18 [History] Tramadol HCl [Ultram] 100 mg PO TID 01/23/18 [History] Valacyclovir HCl [Valtrex] 1,000 mg PO Q12H PRN 01/23/18 [History] amLODIPine [Norvasc] 10 mg PO DAILY 01/23/18 [History] Haloperidol [Haldol] 5 mg PO BID 01/24/18 [History] Montelukast [Singulair] 10 mg PO DAILY 01/24/18 [History] Trihexyphenidyl [Artane] 1 mg PO BID 01/24/18 [History] Sodium Chloride [Sodium Chloride Tab] 1 gm PO BID #60 tablet 01/26/18 [Rx] Atorvastatin [Lipitor] 20 mg PO HS 02/16/18 [History] Allergies/Adverse Reactions: Allergy/AdvReac Type Severity Reaction Status Date / Time No Known Allergies Allergy Verified 02/09/17 16:36 Date of admission: 02/23/18 18:13 Primary care physician: Alize oWo M.D. - Constitutional Vitals: Temp Pulse Resp BP Pulse Ox 97.9 F 50 18 161/91 99 02/24/18 06:45 02/24/18 06:45 02/24/18 06:45 02/24/18 06:45 02/24/18 06:45 - Patient Status Disposition: Home, Self-Care Condition: Fair - Discharge Instructions Follow Up With: NONE,PCP [Primary Care Provider] - 1 week - Diet and Activity Activity: resume usual activities as tolerated Diet: advance to your usual diet
== END 2018-02-24 11:26 | disposition home or self-care (01) ==
LOC: INPPIK 16:41 → EMEROOPIK 16:41 → INPPIK 19:28
PROVIDERS: ADMIT Internal Medicine; ATTEND Internal Medicine